=== PATIENT | female | born 2000 | race Two or more races ===

== ENCOUNTER 2021-01-17 16:08 | Outpatient (CLI) | payer OTHER | END 2021-01-17 16:09 | disposition home or self-care (01) | LOC: COV 16:08 | PROVIDERS: ATTEND Family Medicine | DX: R53.83 Other fatigue (principal); R07.0 Pain in throat; R09.81 Nasal congestion; J34.89 Other specified disorders of nose and nasal sinuses; Z20.822 Contact with and (suspected) exposure to COVID-19 ==